=== PATIENT | male | born 1945 | race Asian ===

== ENCOUNTER 2024-07-31 11:31 | Inpatient (IN) | payer OTHER, SELFPAY ==
[2024-07-31] VITALS (10 sets, daily range): BP systolic 114–149; BP diastolic 63–85; BMI 22.7; BMI 21.1
[2024-07-31 06:03] LABS: % Basophils 0.3 % (0-2); % Eosinophils 0.5 % (0-6); % Immature Granulocytes 0.4 % (0-0.5); % Lymphocytes 4.8 % (20.5-51.1); % Monocytes 5.4 % (1.7-9.3); % Neutrophils 88.6 % (42.2-75.2); Absolute Eosinophils 0.1 10^3/uL (0-0.7); Absolute Immature Granulocytes 0.1 10^3/uL (0-0.05); Absolute Lymphocytes 0.7 10^3/uL (1.2-3.4); Absolute Monocytes 0.8 10^3/uL (0.1-0.6); Absolute Neutrophils 12.9 10^3/uL (1.4-6.5); Hematocrit 38.8 % (39.0-52.0); Hemoglobin 13.2 g/dL (13.0-18.0); Mean Corpuscular Hgb 29.4 pg (27.0-31.0); Mean Corpuscular Volume 86.4 fL (80.0-94.0); Mean Platelet Volume 8.1 fL (7.4-10.4); Nucleated Red Blood Cells % 0 % (-); Platelet Count 179 10^3/uL (130-400); Red Blood Cell Count 4.49 10^6/uL (4.70-6.10); Red Cell Dist. Width 13.9 % (11.5-14.5); White Blood Cell Count 14.6 10^3/uL (4.8-10.8)
[2024-07-31 06:20] LABS: ALT (SGPT) 32 U/L (0-50); AST (SGOT) 23 U/L (17-59); Albumin 4.4 g/dl (3.5-5.0); Alkaline Phosphatase 78 U/L (38-126); Blood Urea Nitrogen 20 mg/dl (9-20); Calcium 9.3 mg/dl (8.4-10.2); Carbon Dioxide 25 mmol/L (22-30); Chloride 97 mmol/L (98-107); Estimated Creatinine Clearance 49 ml/min; Glucose 167 mg/dl (70-99); Lactic Acid 1.5 mmol/L (0.7-2.0); Potassium 3.9 mmol/L (3.5-5.1); Sodium 136 mmol/L (135-145); Total Protein 6.9 g/dl (6.3-8.2); eGFR > 60.00
--- NOTE | 2024-07-31 06:25 | ED.GENMED ---
History of Present Illness
General
Chief Complaint: Male Genito-Urinary Symptoms
Source: family
Exam Limitations: clinical condition
Time Seen by Provider: 07/31/24 06:06
Nursing documentation reviewed up to this point in time: agreed with
History of Present Illness
History of Present Illness:
pt is a 78 y/o M
h/o NIDDM off meds, HLD
frequent UTIs
here with fever and weakness this morning, suspected UTI and mild hematuria
pt was hospitalized from 06/25-07/02 for weakness and UTI
he was treated with abx (? cipro)
following that admission pt had recheck of labs by PCP and was hyperkalemic, so on 07/19 went to [facility] ED where he was checked and potassium was 4.2 (from 6.2 outpatient)
pt may have had UTI then but really cannot remember. paperwork does not suggest that he was on abx
recently they suspected he had UTI so he had an unknown antibiotic but yesterday pt's son in law called in macrobid which he had 2 doses of
overnight he spiked fever to 101, treated with tylenol
he was generally weak today as well
no cough, headache, sore throat, belly apin, back pain, focal weakness
Past History
Past History
ED Past Medical History: Hypercholesterolemia, NIDDM and Other (UTIs)
Social History
Tobacco: Non-smoker
Alcohol: None
Personal:
Review of Systems
Review of Systems
Allergies reviewed?: Yes
All Other Systems: Not applicable
Phy Exam
Physical Exam
Physical Exam:
GENERAL: Sleeping, arousable
EYE: pupils equal and reactive
NECK: Supple
ENT: o/p clr, mmm.
CARDIAC: Regular rate and rhythm .
LUNGS: Clear breath sounds bilaterally, no acute respiratory distress, no wheezes/rales/rhonchi
ABDOMEN: Soft, without focal tenderness, no r/g, no cvat, normal bowel sounds
NEUROLOGICAL: Alert and oriented, no focal neuro deficits, cranial nerves intact, strength intact, but falls asleep easily
SKIN: Warm and dry, skin intact.
MUSCULOSKELETAL: No edema, well perfused. neg darian's sign
PSYCH: Normal and appropriate interaction.
Sepsis
Sepsis Screening
Sepsis Assessment: Sepsis
Sepsis Screen
Sepsis Screen: Sepsis
Date: 07/31/24
Time: 08:00
Course
Orders/Labs/Results
Orders:
Orders
07/31/24 05:51
Complete Blood Count/With Diff Urgent
Comprehensive Metabolic Panel Urgent
Lactic Acid Urgent
Blood Culture Urgent
IKE Source: Blood/Venous
Specimen Description:
Date Specimen was Collected: 07/31/24
Time Specimen was Collected: 05:39
07/31/24 06:23
CT Abd/pel Without Iv Or Oral Urgent
Comment:
Reason For Exam: hematuria, fever
0.9% Sodium Chloride 1000 ml [Nss] 1,000 ml IV BOLUS
07/31/24 06:47
COVID-19 Antigen Urgent
Source: Nasal Swab
Urinalysis Reflex To Culture Urgent
Date Specimen was Collected: 07/31/24
Time Specimen was Collected: 05:39
Urine Microscopic Reflex Cult Urgent
Influenza A+B Rapid Molecular Urgent
IKE Source: Nasal Swab
Specimen Description:
Urine Culture Urgent
IKE Source: U
Specimen Description:
Date Specimen was Collected: 07/31/24
Time Specimen was Collected: 05:39
07/31/24 07:59
CefTRIAXone [Rocephin] 2,000 mg IV NOW STA
07/31/24 08:14
Bladder Scan- Treatment ONCE
07/31/24 08:16
Sterile Water [Sterile Water For Injection] 20 ml .ROUTE .STK-MED
Abnormal Lab Results
07/31/24 07/31/24
05:51 06:47
WBC 14.6 H 10^3/uL
(4.8-10.8)
RBC 4.49 L 10^6/uL
(4.70-6.10)
Hct 38.8 L %
(39.0-52.0)
Abs Immat Gran (auto) 0.1 H 10^3/uL
(0-0.05)
Absolute Neuts (auto) 12.9 H 10^3/uL
(1.4-6.5)
Absolute Lymphs (auto) 0.7 L 10^3/uL
(1.2-3.4)
Absolute Monos (auto) 0.8 H 10^3/uL
(0.1-0.6)
Neutrophils % 88.6 H %
(42.2-75.2)
Lymphocytes % 4.8 L %
(20.5-51.1)
Chloride 97 L mmol/L
(98-107)
Glucose 167 H mg/dl
(70-99)
Ur Occult Blood Reflex 4+ A
(Negative)
Leukocyte Esterase Rfl 3+ A
(Negative)
Urine RBC 3-6 A /HPF
(0-2)
Urine WBC (Reflex) >100 A /HPF
(0-5)
Urine Bacteria (Reflex) Few A
(Negative)
Urine Albumin (Reflex) 3+ A
(Neg - Trace)
07/31/24 05:51
07/31/24 05:51
Vital Signs
Initial and Last Documented VS:
Initial Vital Signs
Pulse Resp BP Pulse Ox
88 18 138/72 95
07/31/24 05:25 07/31/24 05:25 07/31/24 05:25 07/31/24 05:25
Last Documented Vital Signs
Temp Pulse Resp BP Pulse Ox
36.6 C 86 17 114/71 97
07/31/24 05:39 07/31/24 08:47 07/31/24 08:47 07/31/24 08:47 07/31/24 07:30
MDM/Problems Addressed
Differential Diagnosis Includes:
sepsis, UTI
MDM/Problems Addressed:
78 y/o M
this is pt's 4th UTI in the past 5 weeks
gen weakness, fever and dysuria/hematuria since yesterday per family
son in law is physician
he says that he is unaware of what abx pt had 06/25-07/02 when pt was at [facility]
but that 2 weeks ago he had another uti, treated with levaquin
then last week developed another uti and was given macrobid which he completed 7 days of
but worse yesterday so son in law called in another 7 days worth
the weakness is genrealized
he is afebrile here
sleeping but arousable
no findings on exam focally
wbc 14 lft shift
urine pos
cr normal
ct scan cystitis, probably chronic bladder outlet obstrution
will culture, admit for abx.
*Critical Care Note
Total Time (30-74mins, 75-104mins- exclusive of procedures): Not Applicable
ED Attending Note
-
Portions of this chart may have been created with voice recognition software.� Occasional wrong word or��sound alike� substitutions may have occurred due to the inherent limitations of voice recognition software.
Discharge Plan
Departure
Patient Disposition: Admit
Date of Disposition: 07/31/24
Time of Disposition: 08:04
Admit to: Med/Surg
Presentation/result/management discussed w/ accepting MD/DO: Hospitalist
Condition: Fair
Covid-19: Not Applicable
Discharge Problem:
UTI (urinary tract infection)
Prescriptions:
No Action
atorvastatin 20 mg Tablet
20 mg PO QPM
tamsulosin 0.4 mg Capsule
0.4 mg PO QPM
nitrofurantoin monohyd/m-cryst 100 mg Capsule
100 mg PO BID
Rx Instructions:
for 5 days starting on 07/30/24
latanoprost 0.005 % Drops
1 drp BOTH EYES HS
acetaminophen [Tylenol] 325 mg Tablet
650 mg PO QIDPRN PRN (Reason: mild pain)
cyanocobalamin (vitamin B-12) 1,000 mcg Tablet
1,000 mcg PO DAILY
alum-mag hydroxide-simeth [Mylanta] 200-200-20 mg/5 mL Suspension
10 ml PO DAILYPRN PRN (Reason: stomach issuses)
Referrals:
UNKNOWN - PT DOES,NOT KNOW [Family Provider] -
Interventions
Interventions:
*Risk Screen - Suicide Last Done: 07/31/24 05:39
*General Assessment Last Done: 07/31/24 05:39
*Neglect/Abuse Screening Last Done: 07/31/24 05:39
*ED- Fall Risk Assessment Last Done: 07/31/24 05:39
*ED COVID-19 Vaccine History Last Done: 07/31/24 05:39
ED-Male Genitourinary Assessment Last Done: 07/31/24 06:15
Discharge Date and Time
Print Language: [place]EN[place]
[2024-07-31] MEDS: NSS 1000 IV ×2 (06:53→17:12)
[2024-07-31 07:28] LABS: COVID-19 Antigen Negative (Negative)
[2024-07-31 07:37] LABS: Urine Albumin 3+ (Neg - Trace); Urine Bilirubin Negative (Negative); Urine Character Clear (Clear); Urine Color Yellow; Urine Glucose Negative (Negative); Urine Ketone Negative (Negative); Urine Leukocyte 3+ (Negative); Urine Nitrite Negative (Negative); Urine Occult Blood 4+ (Negative); Urine Urobilinogen Negative (Neg - 1+)
[2024-07-31 07:54] LABS: Urine Bacteria Few (Negative); Urine White Cell >100 /HPF (0-5)
[2024-07-31] MEDS: ROCEPHIN 2000 MG IV (08:42)
--- NOTE | 2024-07-31 11:24 | HPS.HSE ---
Family Physician
-
Family Physician: NOT KNOW UNKNOWN - PT DOES
Chief Complaint
-
fever
History of Present Illness
78-year-old male who is presenting from home with fevers. Patient was admitted to [facility] for 7 days for urinary tract infection was discharged home with oral antibiotics. At home patient has been having intermittent dysuria and
increasing urgency. Patient also with constipation. Spouse states patient at home with very small bowel movements here and there. Denies any flank pain. Denies any hematuria. Denies any lightheadedness or dizziness. Denies any chest pain or
shortness of breath or palpitation no nausea or vomiting. Patient had a fever overnight and took Tylenol. Patient has been feeling extremely weak at home which has been chronic issue per spouse at bedside. Of note patient took 2 doses of Macrobid
before coming into the hospital.
Medical History
Past Medical History
Past Medical History: Reports Other
Additional Past Medical History:
Hyperlipidemia
Glaucoma
Diabetes mellitus
BPH
Hard of hearing
Past Surgical History: Reports None
Social History
Tobacco: Non-smoker
Alcohol: None
Personal:
Living: With Family
Family History
Family History: Not pertinent
Allergies / Home Medications
Allergies reflects when Allergies were last updated in [employer].
Home Medications with original date entered in [employer]
Allergy/Medication List:
Allergies
Allergy/AdvReac Type Severity Reaction Status Date / Time
enalapril Allergy mouth Verified 07/31/24 05:37
tingling
and
swelling
Home Medications
acetaminophen 325 mg tablet (Tylenol) 650 mg PO QIDPRN PRN mild pain 07/31/24
aluminum-mag hydroxide-simethicone 200 mg-200 mg-20 mg/5 mL oral susp 10 ml PO DAILYPRN PRN stomach issuses 07/31/24
atorvastatin 20 mg tablet 20 mg PO QPM 07/31/24
cyanocobalamin (vitamin B-12) 1,000 mcg tablet 1,000 mcg PO DAILY 07/31/24
latanoprost 0.005 % eye drops 1 drp BOTH EYES HS 07/31/24
nitrofurantoin monohydrate/macrocrystals 100 mg capsule 100 mg PO BID 07/31/24
tamsulosin 0.4 mg capsule 0.4 mg PO QPM 07/31/24
Review of Systems
-
History Source: Patient and Family
A 12 point ROS was completed and negative except as noted: Yes
Physical Exam
Vital Signs
Vital Signs
Temp Pulse Resp BP Pulse Ox
97.9 F 87 16 129/69 96
07/31/24 05:39 07/31/24 10:44 07/31/24 10:30 07/31/24 10:44 07/31/24 10:30
Physical Exam
General: Well Developed, Well Nourished and No Apparent Distress
HEENT: NormoCephalic, Moist mucous membranes, Atraumatic, No Ptosis, Nose Appears Normal, Ears Appear Normal and Hearing Impaired; No Oxygen
Respiratory: Clear
Cardiac: S1/S2 and Regular Rhythm; No Murmur or Rub
GI: Soft, Non Tender, Non Distended and Normal Bowel Sounds; No Organomegaly
Rectal: Deferred by Provider
Musculoskeletal: No Clubbing, No Cyanosis and No Edema
Skin: No Rash
Neuro: Awake, Alert, No Motor Deficits and Nonfocal/grossly intact; No Slurred Speech, Facial Droop or Tremors
Psych: Calm
Laboratory Results
-
07/31/24 05:51
07/31/24 05:51
Laboratory Results
Lactic Acid Cancelled 07/31/24 06:24
Total Bilirubin 1.0 mg/dl (0.2-1.3) 07/31/24 05:51
AST 23 U/L (17-59) 07/31/24 05:51
ALT 32 U/L (0-50) 07/31/24 05:51
Alkaline Phosphatase 78 U/L (38-126) 07/31/24 05:51
Data Reviewed
-
CT Scan: Report Reviewed by me, Discussed with Patient and Discussed with Family
Lab Data: Labs Reviewed by me, Discussed with Patient and Discussed with Family
Impression/Plan
-
#Sepsis likely secondary to urinary tract infection
Vital signs are stable currently
Start patient on gentle IV fluids
Lactic acid normal
Influenza and COVID-negative
Blood cultures and lab
UA noted. Urine culture in lab
Start patient on ceftriaxone
CT abdomen pelvis without IV or p.o. contrast noted. No stones. No hydronephrosis. Mild thickening of bladder. Cystitis is a consideration, may be related to chronic outlet obstruction. Right renal cyst. Large volume of stool within the colon.
Continue to trend temperature and fever curve
#Constipation
Start patient requested bowel regimen
Severe constipation could also be playing a role with mild urinary retention
#BPH
Continue with Flomax. May need to consider increasing dose.
DM2
Not on meds
Iss and accuchecks for now
Check A1C
Hyperlipidemia
Continue wit statin
Glaucoma
Continue with eyedrops
Hearing impairment
DVT prophylaxis�Lovenox
Full code
Discussed with spouse at bedside in detail
I spent a total of 80 minutes with the patient or on the floor. More than 50% of this time involved counseling and coordination of care.
--- NOTE | 2024-07-31 15:12 | CM ---
Met in ER room. Patient sound asleep. reports patient has been independent at home . He sometimes uses a rolling walker. they live in 2 levle home with 3 steps to enter. full bath on entry level electrician. Up 13 steps to bedroom and full bath. He
has shower chair.
Admitted with sepsis, UTI.
No history of SNF.
Current with [facility].
PCP Blanca Mendoza
Pharmacy: [facility].
PLAN : return home with [facility].
[2024-07-31 17:01] LABS: Glucose - Point of Care 114 mg/dl (70-99)
[2024-07-31] MEDS: MIRALAX 17 GRAMS PO (17:10)
[2024-07-31] MEDS: LIPITOR 20 MG PO (17:11)
[2024-07-31] MEDS: LOVENOX 40 MG SC (17:11)
[2024-07-31] MEDS: SENOKOT-S 1 TABLET PO ×2 (17:11→20:06)
[2024-07-31] MEDS: DULCOLAX 10 MG PO (17:11)
[2024-07-31] MEDS: NOVOLOG FLEXPEN-LOW RESISTANCE SC (17:19)
[2024-07-31] MEDS: FLOMAX 0.4 MG PO (20:06)
[2024-07-31 21:41] LABS: Glucose - Point of Care 130 mg/dl (70-99)
[2024-07-31] MEDS: XALATAN OPHTHALMIC SOLUTION 1 DROP BOTH EYES (21:53)
--- NOTE | 2024-08-01 03:50 | DOWNTIME ---
There was a [employer] Client [employer]izer Machine Downtime on 08/01/2024 from 0200 to 08/02/2023 at 0318 . Downtime documentation of patient's care, including medication administrations, has been reconciled in the electronic record per guidelines. Refer to the
patient's paper chart under the miscellaneous tab to see printed paper medication records and downtime forms.
[2024-08-01 07:00] VITALS: BP 138/82
[2024-08-01 07:49] LABS: Glucose - Point of Care 119 mg/dl (70-99)
[2024-08-01] MEDS: FLOMAX 0.4 MG PO ×2 (08:01→19:56)
[2024-08-01] MEDS: SENOKOT-S 1 TABLET PO ×2 (08:01→19:56)
[2024-08-01] MEDS: MIRALAX 17 GRAMS PO (08:01)
[2024-08-01] MEDS: VITAMIN B-12 1000 MCG PO (08:01)
[2024-08-01] MEDS: NOVOLOG FLEXPEN-LOW RESISTANCE SC ×3 (08:02→17:17)
[2024-08-01] MEDS: STERILE WATER FOR INJECTION 10 ML IV (08:06)
[2024-08-01] MEDS: ROCEPHIN 1000 MG IV (08:07)
[2024-08-01 09:05] LABS: % Basophils 0.7 % (0-2); % Eosinophils 2.1 % (0-6); % Immature Granulocytes 0.3 % (0-0.5); % Lymphocytes 15.6 % (20.5-51.1); % Monocytes 6.3 % (1.7-9.3); Absolute Basophils 0.1 10^3/uL (0-0.2); Absolute Eosinophils 0.2 10^3/uL (0-0.7); Absolute Lymphocytes 1.2 10^3/uL (1.2-3.4); Absolute Monocytes 0.5 10^3/uL (0.1-0.6); Absolute Neutrophils 5.7 10^3/uL (1.4-6.5); Hematocrit 35.1 % (39.0-52.0); Hemoglobin 11.9 g/dL (13.0-18.0); Mean Corp Hgb Conc. 33.9 g/dL (33.0-37.0); Mean Corpuscular Hgb 29.5 pg (27.0-31.0); Mean Corpuscular Volume 86.9 fL (80.0-94.0); Mean Platelet Volume 8.8 fL (7.4-10.4); Nucleated Red Blood Cells % 0 % (-); Platelet Count 166 10^3/uL (130-400); Red Blood Cell Count 4.04 10^6/uL (4.70-6.10); Red Cell Dist. Width 13.9 % (11.5-14.5); White Blood Cell Count 7.6 10^3/uL (4.8-10.8)
[2024-08-01 10:27] LABS: Blood Urea Nitrogen 19 mg/dl (9-20); Calcium 8.2 mg/dl (8.4-10.2); Carbon Dioxide 21 mmol/L (22-30); Chloride 107 mmol/L (98-107); Estimated Creatinine Clearance 58 ml/min; Glucose 117 mg/dl (70-99); Potassium 3.8 mmol/L (3.5-5.1); Sodium 137 mmol/L (135-145); eGFR > 60.00
--- NOTE | 2024-08-01 10:46 | CM ---
CM reviewed chart, patient asleep bedside, seen with daughter and . Family confirms patient is current with [facility]. PT ordered, will watch for evaluations/recommendations. CM will continue to follow for all discharge planning needs.
Plan; return home with family and [facility]
[2024-08-01 10:54] LABS: Glycohemoglobin (HgbA1c) 7.6 % (4.0-5.6)
--- NOTE | 2024-08-01 12:12 | W.PN.HOSP.TC ---
Today's Communication/Plan
-
Repeat UA
Bladder scan protocol
Continue with Flomax twice daily
Continue with antibiotics for now
Assessment / Plan
Assessment / Plan
# Dysuria likely secondary to chronic outlet obstruction versus low likelihood of UTI infection
# Leukocytosis likely secondary to reactive
Vital signs are stable currently
s/p IVF
Lactic acid normal
Influenza and COVID-negative
Blood cultures in the lab negative so far
UA with occult hematuria noted urine culture with contamination. Did stop Macrobid prior to arrival to the hospital. Unclear if repeat culture will show any data.
CT abdomen pelvis without IV or p.o. contrast noted. No stones. No hydronephrosis. Mild thickening of bladder. Cystitis is a consideration, may be related to chronic outlet obstruction. Right renal cyst. Large volume of stool within the colon.
Continue to trend temperature and fever curve
Requested [facility] records
Will ask urology for further input
#Constipation
Start patient requested bowel regimen
Severe constipation could also be playing a role with mild urinary retention
# BPH
Continue with Flomax. And increased to twice daily dosing
DM2
Not on meds
Iss and accuchecks for now
Check A1C
Hyperlipidemia
Continue wit statin
Glaucoma
Continue with eyedrops
Hearing impairment
DVT prophylaxis�Lovenox
Full code
PT eval Home versus SNF
Discussed with patient spouse, daughter at bedside and also discussed with patient's son-in-law physician over the phone in detail.
Anticipated Discharge: 24 - 48 hours
Subjective/Interval History
-
Date of Service: August 01, 2024
had bm yesterday
appetite improved
Objective Data
-
Labs:
Laboratory Results
08/01/24
07:00
WBC 7.6
Hgb 11.9 L
Hct 35.1 L
Plt Count 166
Sodium 137
Potassium 3.8
Chloride 107
Carbon Dioxide 21 L
BUN 19
Creatinine 0.8
Glucose 117 H
Calcium 8.2 L
Vital Signs:
Vital Signs
Temp Pulse Resp BP Pulse Ox
97.6 F 93 16 138/82 98
08/01/24 07:00 08/01/24 07:00 08/01/24 07:00 08/01/24 07:00 08/01/24 09:20
I&O
07/31/24 08/01/24 08/02/24
06:59 06:59 06:59
Intake Total 1280 / 1280
Output Total 975 / 975
Balance 305 / 305
Physical Exam
-
General: Well Developed and No Apparent Distress
HEENT: Normocephalic, Atraumatic and Moist Mucous Membranes
Respiratory: Clear to Auscultation
Cardiac: Regular Rhythm and S1/S2; Negative Murmur, Rub or Gallop
GI: Soft, Nontender, Nondistended and Normal Bowel Sounds; Negative Organomegaly
Rectal: Deferred by Provider
Musculoskeletal: No Clubbing, No Cyanosis and No Edema
Skin: Negative Rash
Neuro: Nonfocal/Grossly Intact
Data Reviewed
-
Total Time Spent with Patient (in minutes): 55
[2024-08-01 12:14] LABS: Glucose - Point of Care 149 mg/dl (70-99)
[2024-08-01 12:25] VITALS: BP 140/78; PULSE 85
[2024-08-01 14:50] LABS: Urine Albumin 1+ (Neg - Trace); Urine Bilirubin Negative (Negative); Urine Character Clear (Clear); Urine Color Yellow; Urine Glucose 1+ (Negative); Urine Ketone Negative (Negative); Urine Leukocyte 1+ (Negative); Urine Nitrite Negative (Negative); Urine Occult Blood Negative (Negative); Urine Urobilinogen Negative (Neg - 1+)
[2024-08-01 15:00] VITALS: BP 132/84
[2024-08-01 15:31] LABS: Urine Amorphous Seen; Urine Red Blood Cell 0-2 /HPF (0-2); Urine Squamous Cell 0-2 /LPF (Few)
[2024-08-01 15:32] LABS: Urine White Cell 21-25 /HPF (0-5)
--- NOTE | 2024-08-01 16:10 | CONS.URO ---
Consultation
-
Date/Time Consultation Performed: 08/01/24 1610
Performing Provider: Vishal
Reason for Consultation: urinary symptoms
Medical History
History of Present Illness
ED admission note excerpt: '78-year-old male who is presenting from home with fevers. Patient was admitted to [facility] for 7 days for urinary tract infection was discharged home with oral antibiotics. At home patient has been
having intermittent dysuria and increasing urgency.'
Per daughter and , no urology consultation was obtained.
Past Medical History
Past Medical History: Other (Hyperlipidemia Glaucoma Diabetes mellitus BPH Hard of hearing)
Past Surgical History: None
Allergies/Home Medications
Allergies
Allergy/AdvReac Type Severity Reaction Status Date / Time
enalapril Allergy mouth Verified 07/31/24 05:37
tingling
and
swelling
Home Medications
�Medication �Instructions �Recorded �Confirmed �Type
acetaminophen 325 mg tablet 650 mg PO QIDPRN PRN mild pain 07/31/24 07/31/24 History
(Tylenol)
aluminum-mag hydroxide-simethicone 10 ml PO DAILYPRN PRN stomach 07/31/24 07/31/24 History
200 mg-200 mg-20 mg/5 mL oral susp issuses
atorvastatin 20 mg tablet 20 mg PO QPM High Cholesterol 07/31/24 07/31/24 History
cyanocobalamin (vitamin B-12) 1,000 mcg PO DAILY Supplement 07/31/24 07/31/24 History
1,000 mcg tablet
latanoprost 0.005 % eye drops 1 drp BOTH EYES HS Eye Condition 07/31/24 07/31/24 History
nitrofurantoin 100 mg PO BID Infection 07/31/24 07/31/24 History
monohydrate/macrocrystals 100 mg
capsule
tamsulosin 0.4 mg capsule 0.4 mg PO QPM Urinary Issue 07/31/24 07/31/24 History
Physical Exam
Vital Signs
Vital Signs
Temp Pulse Resp BP Pulse Ox
97.7 F 87 18 132/84 98
08/01/24 15:00 08/01/24 15:00 08/01/24 15:00 08/01/24 15:00 08/01/24 15:00
Lab / Testing Results
Laboratory Results
08/01/24 07:00
08/01/24 07:00
Assessment / Plan
-
Persistent Bacterial Prostatitis -- reportedly, Macrobid/Nitrofurantoin was prescribed -->this agent is ineffective for soft-tissue [prostate] infections
Urine cx shows no growth due to nitrofurantoin
As PVR only demonstrated ~ 100 ml, dysuria is to to infection, not significant retention
Rec:
Tamsulosin
Phenazopyridine
OBTAIN URINE C&S FROM [facility] ADMISSION TO GUIDE 2-WEEK COURSE OF ORAL ANTIBIOTICS AT TIME OF DISCHARGE
Data Reviewed
-
CT Scan: Image personally visualized and interpreted (2.6 cm benign-appearing right renal cyst; moderate prostate enlargement with several hundred ml urine within bladder which demonstrates some compensatory wall thickening) and Discussed with Family
Lab Data: Labs Reviewed (negative urine culture -- expected due to use of antibiotics) and Discussed with Family
--- NOTE | 2024-08-01 16:38 | PTCARENOTE ---
Educated patient and family on new med Pyridium and when to ask for the medication. Teach back method used.
[2024-08-01 17:09] LABS: Glucose - Point of Care 137 mg/dl (70-99)
[2024-08-01] MEDS: LIPITOR 20 MG PO (17:42)
[2024-08-01] MEDS: LOVENOX 40 MG SC (17:42)
[2024-08-01] MEDS: XALATAN OPHTHALMIC SOLUTION 1 DROP BOTH EYES (21:43)
[2024-08-01 22:22] LABS: Glucose - Point of Care 193 mg/dl (70-99)
[2024-08-01 23:27] VITALS: BP 153/82
[2024-08-02 07:21] LABS: Glucose - Point of Care 122 mg/dl (70-99)
[2024-08-02] MEDS: NOVOLOG FLEXPEN-LOW RESISTANCE SC ×2 (08:30→18:13)
[2024-08-02] MEDS: VITAMIN B-12 1000 MCG PO (08:31)
[2024-08-02] MEDS: MIRALAX 17 GRAMS PO (08:31)
[2024-08-02] MEDS: SENOKOT-S 1 TABLET PO (08:31)
[2024-08-02] MEDS: FLOMAX 0.4 MG PO (08:31)
[2024-08-02 08:48] LABS: % Basophils 0.5 % (0-2); % Eosinophils 4.9 % (0-6); % Immature Granulocytes 0.4 % (0-0.5); % Lymphocytes 22.5 % (20.5-51.1); % Monocytes 7.6 % (1.7-9.3); % Neutrophils 64.1 % (42.2-75.2); Absolute Eosinophils 0.3 10^3/uL (0-0.7); Absolute Lymphocytes 1.2 10^3/uL (1.2-3.4); Absolute Monocytes 0.4 10^3/uL (0.1-0.6); Absolute Neutrophils 3.5 10^3/uL (1.4-6.5); Hemoglobin 12.3 g/dL (13.0-18.0); Mean Corp Hgb Conc. 34.2 g/dL (33.0-37.0); Mean Corpuscular Hgb 29.6 pg (27.0-31.0); Mean Corpuscular Volume 86.7 fL (80.0-94.0); Nucleated Red Blood Cells % 0 % (-); Platelet Count 170 10^3/uL (130-400); Red Blood Cell Count 4.15 10^6/uL (4.70-6.10); Red Cell Dist. Width 13.9 % (11.5-14.5); White Blood Cell Count 5.5 10^3/uL (4.8-10.8)
[2024-08-02 09:23] LABS: Blood Urea Nitrogen 14 mg/dl (9-20); Calcium 8.6 mg/dl (8.4-10.2); Carbon Dioxide 25 mmol/L (22-30); Chloride 105 mmol/L (98-107); Estimated Creatinine Clearance 58 ml/min; Glucose 140 mg/dl (70-99); Potassium 3.9 mmol/L (3.5-5.1); Sodium 138 mmol/L (135-145); eGFR > 60.00
[2024-08-02 09:55] VITALS: BP 149/95
--- NOTE | 2024-08-02 10:23 | CM ---
Addendum entered by Noelle Hsu 08/02/24 15:55:
CM spoke with patients , would like to continue with [facility] and not SNF. CM will send updates to [facility].
Plan; home with [facility]
Original Note:
CM reviewed chart, patient seen bedside with . CM discussed PT recommendations of SNF vs VN, would like to speak to her daughter/son-in-law. Patient is current with [facility]. CM will continue to follow for all discharge planning needs.
Plan; home with [facility] vs SNF
--- NOTE | 2024-08-02 10:32 | W.PN.URO.CBU ---
Today's Communication / Plan
-
Rec:
Tamsulosin
Phenazopyridine
antibiotics per urine C&S from [facility] admission
will sign off
Assessment / Plan
-
Persistent Bacterial Prostatitis -- reportedly, Macrobid/Nitrofurantoin was prescribed -->this agent is ineffective for soft-tissue [prostate] infections
As PVRs only demonstrate <<100 ml, dysuria is to to infection, not significant retention
Diagnosis
-
Date of Service: August 02, 2024
-
Patient Diagnosis:
Persistent Bacterial Prostatitis -- reportedly, Macrobid/Nitrofurantoin was prescribed -->this agent is ineffective for soft-tissue [prostate] infections
Urine cx shows no growth due to nitrofurantoin
Subjective
-
continues to void volitionally
Objective
-
Vital Signs
Temp Pulse Resp BP Pulse Ox
97.8 F 94 18 149/95 96
08/02/24 09:55 08/02/24 09:55 08/02/24 09:55 08/02/24 09:55 08/02/24 09:55
Intake and Output
08/01/24 08/02/24 08/03/24
06:59 06:59 06:59
Intake Total 1280 / 1280 660 / 660
Output Total 975 / 975 1050 / 1050
Balance 305 / 305 -390 / -390
Intake:
Oral fluids 480 / 480 660 / 660
IV fluids (Total) 800 / 800
Output:
Urine, Voided 975 / 975 1050 / 1050
Other:
Number of approximated MODERATE 1 1
amounts of urine
Laboratory Results
08/02/24 08:26
04/25/25 08:26
PVRs by bladder scan are modest
Physical Exam
-
General - well developed, well nourished, no acute distress
Chest - clear bilaterally
Abdomen - soft, non-tender, positive bowel sounds, no CVAT, no incisional pain or distention
Genitalia - normal
Rectal - normal
Skin - warm & dry with no rash
Neuro - AOx3, no motor deficits
Extremities - no clubbing, no cyanosis, no edema
Incision - clean, dry
Dressing - clean, dry, intact
[2024-08-02 11:42] LABS: Glucose - Point of Care 208 mg/dl (70-99)
[2024-08-02] MEDS: ROCEPHIN 1000 MG IV (11:49)
[2024-08-02] MEDS: STERILE WATER FOR INJECTION 10 ML IV (11:50)
[2024-08-02] MEDS: NOVOLOG FLEXPEN-LOW RESISTANCE 2 UNITS SC (12:26)
--- NOTE | 2024-08-02 12:36 | W.PN.HOSP.TC ---
Addendum entered and electronically signed by Robbi Ann MD 08/02/24 16:42:
Discussed case with patient son-in-law Dr. Germain was able to provide patient initial urine culture from urgent care. Patient urine culture with E. coli however resistant to ciprofloxacin, Levaquin and Bactrim. Sensitivity was noted to
cephalosporins. Discussed case with Dr. Germain and all in agreement to give a trial of cephalosporins. Did recommend that if patient were to develop persistent dysuria and/or fever to return to ER the patient may require IV antibiotics for
prolonged period of time. All questions were answered and they were agreeable and they were eager to get discharged home. Did mention of strict precautions to return to ER if patient were to develop any fever or no improvement in dysuria.
More than 30 minutes spent in discharge including
Final examination of the patient
Summarizing hospital stay
Instructions for continuing care to all relevant caregivers
Preparation of discharge records, prescriptions, and referral forms
Total time spent (in minutes): 45
Original Note:
Today's Communication/Plan
-
Awaiting [facility] records
Continue with IV antibiotics in the interim
Continue with bowel regimen
Assessment / Plan
Assessment / Plan
# Dysuria likely secondary to chronic outlet obstruction versus subacute prostatitis
# Leukocytosis likely secondary to reactive
Vital signs are stable currently
s/p IVF
Lactic acid normal
Influenza and COVID-negative
Blood cultures in the lab negative so far
UA with occult hematuria noted urine culture with contamination. Did stop Macrobid prior to arrival to the hospital. Unclear if repeat culture will show any data.
CT abdomen pelvis without IV or p.o. contrast noted. No stones. No hydronephrosis. Mild thickening of bladder. Cystitis is a consideration, may be related to chronic outlet obstruction. Right renal cyst. Large volume of stool within the colon.
Continue to trend temperature and fever curve
Patient with low PVR and per urology most likely concern for prostatitis.
Requested [facility] records-awaiting culture data
Appreciate urology evaluation
#Constipation
Start patient requested bowel regimen
Severe constipation could also be playing a role with mild urinary retention
# BPH
Continue with Flomax. And increased to twice daily dosing
DM2
Not on meds
Iss and accuchecks for now
Check A1C
Hyperlipidemia
Continue wit statin
Glaucoma
Continue with eyedrops
Hearing impairment
DVT prophylaxis�Lovenox
Full code
PT eval Home versus SNF
Discussed with patient spouse at bedside in detail
Anticipated Discharge: Within 24 hours
Subjective/Interval History
-
Date of Service: August 02, 2024
Denies any abdominal pain
Tolerating diet
Remains afebrile
Awaiting records from [facility]
Objective Data
-
Labs:
Laboratory Results
08/02/24
08:26
WBC 5.5
Hgb 12.3 L
Hct 36.0 L
Plt Count 170
Sodium 138
Potassium 3.9
Chloride 105
Carbon Dioxide 25
BUN 14
Creatinine 0.8
Glucose 140 H
Calcium 8.6
Vital Signs:
Vital Signs
Temp Pulse Resp BP Pulse Ox
97.8 F 94 18 149/95 96
08/02/24 09:55 08/02/24 09:55 08/02/24 09:55 08/02/24 09:55 08/02/24 09:55
I&O
08/01/24 08/02/24 08/03/24
06:59 06:59 06:59
Intake Total 1280 / 1280 660 / 660
Output Total 975 / 975 1050 / 1050
Balance 305 / 305 -390 / -390
Physical Exam
-
General: Well Developed and No Apparent Distress
HEENT: Normocephalic, Atraumatic and Moist Mucous Membranes
Respiratory: Clear to Auscultation
Cardiac: Regular Rhythm and S1/S2; Negative Murmur, Rub or Gallop
GI: Soft, Nontender, Nondistended and Normal Bowel Sounds; Negative Organomegaly
Rectal: Deferred by Provider
Musculoskeletal: No Clubbing, No Cyanosis and No Edema
Skin: Negative Rash
Neuro: Nonfocal/Grossly Intact
[2024-08-02 14:43] VITALS: BP 141/84; PULSE 80; O2SAT 97
[2024-08-02 15:27] VITALS: BP 139/77
--- NOTE | 2024-08-02 16:41 | W.DCSUMMARY ---
Discharge Summary
Discharge Data
Date of Admission: 07/31/24
Date of Discharge: 08/02/24
-
Pending Results: No
Hospital Course
78-year-old male past medical history of BPH, diabetes mellitus, hyperlipidemia, glaucoma, hearing impairment who is presenting from home with fevers and dysuria. Of note patient with urinary tract infection which was diagnosed at urgent care and
then subsequently also went to [facility] where he was treated with urinary tract infection. Patient had prolonged hospitalization at [facility]. Patient returned home and was also having persistent dysuria. Patient had
fever and family decided to come into the ER. Urine analysis was shown with occult hematuria. Urine culture with contamination. Repeat UA was repeated which no showed no growth. Of note patient was taking Macrobid provide prior to arrival to the
hospital. Discussed case patient's son-in-law who is a physician was able to provide patient original culture from urgent care. Patient was kept on ceftriaxone here patient was also eval by urology. Patient was continued on Flomax. Patient also
with severe constipation which was noted on CAT scan on admission. Patient was having bowel movements and constipation resolved. Based on patient initial urine culture from urgent care which showed E. coli urinary tract infection sensitivity to
cephalosporin and resistance to fluoroquinolones and Bactrim. Discussed case with patient and son-in-law Angelito Germain with plan to switch patient to cephalosporin. Patient and family really wanted patient to go home. Plan will be to monitor
patient's symptoms on cephalosporins. However they understand that patient with any fevers or persistent dysuria then return to ER as patient will require probably IV antibiotics. All patient, patient's spouse, patient daughter and son-in-law
questions were answered. They were eager to get discharged home.
Discharge Plan
-
Patient Disposition: Home with Home Care
Discharge Diagnosis/Procedures: Dysuria likely secondary to persistent bacterial prostatitis
Severe constipation
Condition: Fair
Diet: Low Cholesterol
Activity: As tolerated
Driving Restrictions: As prior to admission
Referrals:
UNKNOWN - PT DOES,NOT KNOW [Family Provider] - in less than 1 week
Prescriptions:
New
phenazopyridine 200 mg Tablet
200 mg PO TIDPRN PRN (Reason: dysuria) Qty: 14 0RF
sennosides-docusate sodium 8.6-50 mg Tablet
1 tab PO BID Qty: 20 0RF
cefpodoxime 200 mg tablet
200 mg PO Q12H Qty: 24 0RF
Continued
atorvastatin 20 mg Tablet
20 mg PO QPM
tamsulosin 0.4 mg Capsule
0.4 mg PO QPM
latanoprost 0.005 % Drops
1 drp BOTH EYES HS
acetaminophen [Tylenol] 325 mg Tablet
650 mg PO QIDPRN PRN (Reason: mild pain)
cyanocobalamin (vitamin B-12) 1,000 mcg Tablet
1,000 mcg PO DAILY
alum-mag hydroxide-simeth 200-200-20 mg/5 mL Suspension
10 ml PO DAILYPRN PRN (Reason: stomach issuses)
Discontinued
nitrofurantoin monohyd/m-cryst 100 mg Capsule
100 mg PO BID
Rx Instructions:
for 5 days starting on 07/30/24
Discharge Orders:
Discharge Patient (As Directed); Ordered 08/02/24
Ordered By: Robbi Ann
Discharge Date and Time
Print Language: DOMINICAN
[2024-08-02 16:55] LABS: Glucose - Point of Care 117 mg/dl (70-99)
[2024-08-02] MEDS: LOVENOX 40 MG SC (18:16)
[2024-08-02] MEDS: LIPITOR 20 MG PO (18:16)
== END 2024-08-02 18:48 | disposition home health service (06) | DRG 728 ==
LOC: 4 WEST ACU 11:31
PROVIDERS: Physician Assistant; Student in an Organized Health Care Education/Training Program; ADMITTING PHYSICIAN Hospitalist; CONSULT PHYSICIAN Specialist; EMERGENCY PHYSICIAN Emergency Medicine
DX: N41.8 Other inflammatory diseases of prostate (principal); N13.8 Other obstructive and reflux uropathy; Z16.23 Resistance to quinolones and fluoroquinolones; Z16.29 Resistance to other single specified antibiotic; E11.9 Type 2 diabetes mellitus without complications; E78.00 Pure hypercholesterolemia, unspecified; H40.9 Unspecified glaucoma; N40.1 Benign prostatic hyperplasia with lower urinary tract symptoms; K59.00 Constipation, unspecified; H91.90 Unspecified hearing loss, unspecified ear; B96.20 Unspecified Escherichia coli [E. coli] as the cause of diseases classified elsewhere; Z87.440 Personal history of urinary (tract) infections; Z79.899 Other long term (current) drug therapy; Z11.52 Encounter for screening for COVID-19
CPT/HCPCS: 74176; 80048; 80053; 81003; 81015; 82962; 83036; 83605; 85025; 87040; 87086; 87502; 87811; 96361; 96374; 97161; 97530; 99285